=== PATIENT | female | born 2000 | race African-American/Black ===

== ENCOUNTER 2022-05-07 11:37 | Emergency (ER) | payer OTHER ==
[~2022-05-07] VITALS: Ht 157.5 cm; Wt 51.3 kg
[2022-05-07] MEDS ORDERED: IBUPROFEN600 MG PO (11:49)
[2022-05-07] MEDS ORDERED: SILVADENE20 GM TOP (11:49)
== END 2022-05-07 13:00 | disposition home or self-care (01) ==
LOC: ER 11:41
DX: T22.211A Burn of second degree of right forearm, initial encounter (principal); T31.0 Burns involving less than 10% of body surface; X17.XXXA Contact with hot engines, machinery and tools, initial encounter; Y93.G3 Activity, cooking and baking; Y92.89 Other specified places as the place of occurrence of the external cause; Y99.0 Civilian activity done for income or pay
CPT/HCPCS: 99283